=== PATIENT | female | born 1995 | race African-American/Black ===

== ENCOUNTER 2022-02-24 10:55 | Inpatient (IN) | payer MEDICAID ==
[~2022-02-24] VITALS: Ht 167.6 cm; Wt 81.6 kg
[~2022-02-24 10:55] MED LIST: OXYTOCIN 10 UNITS/ML 1ML ONE
[2022-02-24] MEDS ORDERED: IBUPROFEN 400MG TABLET PO PRN (12:00)
[2022-02-24] MEDS ORDERED: LANOLIN OINT 7GM TUBE TOP PRN (12:00)
[2022-02-24] MEDS ORDERED: RHO(D) IMMUNE GLOBULIN 300 MCG/SYR IM PRN (12:00)
[2022-02-24] MEDS ORDERED: OXYTOCIN 30 UNITS/500ML NS PMX 500 ML IV SCH (12:00)
[2022-02-24] MEDS ORDERED: METHYLERGONOVINE MALEATE 0.2 MG/ML IM PRN (12:00)
[2022-02-24 12:30] VITALS: BP 106/67
[2022-02-24 13:00] VITALS: BP 124/64
[2022-02-24 15:06] LABS: BASOPHILS % 0.7 % (0.0-2.0); EOSINOPHILS % 0.4 % (0.0-5.0); HEMATOCRIT. 35.9 % (36.0-48.0); HEMOGLOBIN. 11.6 g/dL (12.0-16.0); LYMPHOCYTES % 24.4 % (20.0-50.0); MEAN CORPUSCULAR HEMOGLOBIN 24.9 pg (28.0-32.0); MEAN CORPUSCULAR VOLUME 76.9 fL (81.0-99.0); MEAN PLATELET VOLUME 9.9 fl (7.4-10.4); MONOCYTES % 9.7 % (2.0-8.0); NEUTROPHILS % 64.8 % (40.0-76.0); PLATELET 169 x1000/uL (130-400); RED BLOOD CELL COUNT 4.67 mill/uL (4.2-5.4); RED CELL DISTRIBUTION WIDTH 12.8 % (11.6-14.6)
[2022-02-24 15:16] LABS: CLARITY URINE CLOUDY (CLEAR); COLOR URINE RED (YELLOW); KETONES URINE TRACE (NEGATIVE); LEUKOCYTE ESTERASE URINE 1+ (NEGATIVE); NITRITE URINE NEGATIVE (NEGATIVE); OCCULT BLOOD URINE 3+ (NEGATIVE); PROTEIN URINE 2+ (NEGATIVE); SPECIFIC GRAVITY URINE 1.017 (1.005-1.030)
[2022-02-24 15:34] LABS: *AMPHETAMINES SCREEN URINE NEGATIVE (NEGATIVE); *BARBITURATES SCREEN URINE NEGATIVE (NEGATIVE); *BENZODIAZEPINES SCREEN URINE NEGATIVE (NEGATIVE); *COCAINE SCREEN URINE NEGATIVE (NEGATIVE); CANNABINOID URINE SCREEN NEGATIVE (NEGATIVE); METHADONE URINE SCREEN NEGATIVE (NEGATIVE); OPIATES URINE SCREEN NEGATIVE (NEGATIVE); PHENCYCLIDINE URINE SCREEN NEGATIVE (NEGATIVE)
[2022-02-24 15:35] LABS: HEPATITIS B SURFACE ANTIGEN NEGATIVE
[2022-02-24 15:47] LABS: INR 0.9; PARTIAL THROMBOPLASTIN TIME 27.6 sec (23.4-31.0); PROTHROMBIN TIME 10.2 sec (9.6-11.0)
[2022-02-24] MEDS: IBUPROFEN 800MG TABLET PO PRN (17:46)
[2022-02-24 19:30] VITALS: BP 139/79
[2022-02-25] MEDS: IBUPROFEN 800MG TABLET PO PRN ×3 (03:39→23:54)
[2022-02-25 04:00] VITALS: BP 118/79
[2022-02-25 06:02] LABS: BASOPHILS % 0.7 % (0.0-2.0); EOSINOPHILS % 0.9 % (0.0-5.0); HEMATOCRIT. 31.9 % (36.0-48.0); HEMOGLOBIN. 10.6 g/dL (12.0-16.0); LYMPHOCYTES % 25.5 % (20.0-50.0); MEAN CORPUSCULAR VOLUME 75.3 fL (81.0-99.0); MEAN PLATELET VOLUME 9.9 fl (7.4-10.4); MONOCYTES % 13.6 % (2.0-8.0); NEUTROPHILS % 59.3 % (40.0-76.0); PLATELET 167 x1000/uL (130-400); RED BLOOD CELL COUNT 4.24 mill/uL (4.2-5.4); RED CELL DISTRIBUTION WIDTH 12.9 % (11.6-14.6)
[2022-02-25 08:00] VITALS: BP 115/78
[2022-02-25] MEDS ORDERED: PRENATAL VIT/FE FUMARATE/FA TABLET PO SCH (09:00)
[2022-02-25 14:37] VITALS: BP 124/74
[2022-02-25 20:00] VITALS: BP 107/74
[2022-02-26 04:00] VITALS: BP 130/70
[2022-02-26] MEDS: IBUPROFEN 800MG TABLET PO PRN (06:21)
[2022-02-26 08:00] VITALS: BP 114/73
[2022-02-26] MEDS ORDERED: FERR210T MT (08:43)
[2022-02-26] MEDS ORDERED: IBUP-2030 PO (08:43)
== END 2022-02-26 12:25 | disposition home or self-care (01) | DRG 560 ==
LOC: UNDOADMIN 10:55 → 8 EST LDRP 10:55 → ER 10:55 → 8 EST LDRP 10:56 → EDSTATUS 12:29 → 8EST 13:42
PROVIDERS: ADMIT Obstetrics & Gynecology; ATTEND Obstetrics & Gynecology
PROC: 10E0XZZ Delivery of Products of Conception, External Approach (ICD-10-PCS; principal; 2022-02-24)
DX: O99.02 Anemia complicating childbirth (principal); Z37.0 Single live birth; D62 Acute posthemorrhagic anemia; Z3A.39 39 weeks gestation of pregnancy
CPT/HCPCS: 36415; 80305; 81003; 85025; 86592; 86703; 86762; 86850; 86900; 87340; 87426; 99281; 99285

== ENCOUNTER 2025-06-27 11:47 | Emergency (ER) | payer MEDICAID, OTHER ==
[~2025-06-27] VITALS: Ht 167.6 cm; Wt 86.0 kg
[~2025-06-27 11:47] MED LIST changes: +FERR210T MT; +IBUP-2030 PO; -OXYTOCIN 10 UNITS/ML 1ML ONE
[2025-06-27 11:57] VITALS: TEMP 36.7; O2SAT 98
[2025-06-27] MEDS ORDERED: HYDROCODONE/ACETAMINOPHEN 5/325MG TABLET PO ONE (14:00)
[2025-06-27] MEDS: LIDOCAINE HCL/EPINEPHRINE 1%-EPI 1:100,000 20ML VIAL INFIL ONE (14:00)
[2025-06-27] MEDS: BACITRACIN ZINC OINT UDPKT TOP ONE (15:11)
[2025-06-27] MEDS: ACETAMINOPHEN 325MG TABLET PO ONE (15:11)
[2025-06-27] MEDS ORDERED: CEPH500T MT (19:14)
[2025-06-27] MEDS ORDERED: IBUP-1455 MT (19:14)
[2025-06-27] MEDS ORDERED: BO1 TP (19:14)
[2025-06-27 19:55] VITALS: BP 129/85; PULSE 90; RESP 14; O2SAT 99
== END 2025-06-27 19:58 | disposition home or self-care (01) ==
LOC: ER 11:47
DX: S81.011A Laceration without foreign body, right knee, initial encounter (principal); W19.XXXA Unspecified fall, initial encounter; Y93.89 Activity, other specified; Y92.89 Other specified places as the place of occurrence of the external cause; Y99.8 Other external cause status
CPT/HCPCS: 99285; 12032; 81025; 73562; 12005; J2004; A6449; 12034; 99284